=== PATIENT | male | born 1965 ===

== ENCOUNTER 2024-09-26 06:28 | Observation (INO) ==
--- NOTE | 2024-08-22 10:24 | PAT Medication Instructions ---
Medication Instructions Date of Service August 22, 2024 Home Medications amlodipine 10 mg tablet (Norvasc) 10 mg PO QAM aspirin 81 mg capsule 81 mg PO QAM carvedilol 6.25 mg tablet (Coreg) 6.25 mg PO BID citalopram 20 mg tablet (Celexa) 20 mg PO QAM ezetimibe 10 mg tablet (Zetia) 10 mg PO QAM losartan 100 mg-hydrochlorothiazide 25 mg tablet 1 tab PO QAM omeprazole 40 mg capsule,delayed release 40 mg PO QAM ASK your prescriber and surgeon aspirin 81 mg capsule 81 mg PO QAM DO NOT take the morning of surgery losartan 100 mg-hydrochlorothiazide 25 mg tablet 1 tab PO QAM Take morning of surgery With a small sip of water, OTHERWISE NOTHING TO EAT OR DRINK AFTER MIDNIGHT: amlodipine 10 mg tablet (Norvasc) 10 mg PO QAM carvedilol 6.25 mg tablet (Coreg) 6.25 mg PO BID citalopram 20 mg tablet (Celexa) 20 mg PO QAM ezetimibe 10 mg tablet (Zetia) 10 mg PO QAM omeprazole 40 mg capsule,delayed release 40 mg PO QAM Take evening before surgery carvedilol 6.25 mg tablet (Coreg) 6.25 mg PO BID Other Notes If you have any questions please call us at [phone] or [phone] or [phone] or [phone]
--- NOTE | 2024-08-25 15:44 | Anesthesiology Consultation ---
Date of Service August 25, 2024 Assessment & Plan (1) Encounter for pre-operative examination: Chart Review Chart Review: Acceptable Risk for Surgery and Patient seen in Pre Admission Testing Pt currently scheduled as 23 hours observation. If surgeon decides to change patient to Same Day Joint, patient would be acceptable risk for TKA, pending patient is motivated, has good support and surgeon's office completes [facility] Program preop requirements. Per PAT appt on 08/25/24, no recent illness/disease exposures, illness related symptoms, or recent illness/disease positive tests. Will leave to surgeon's discretion if preop Covid testing needed Seen by cardio 07/17/24= seen for follow up. HLD- no clinical ASCVD (normal coronaries 2014) and LDL 131 with mayalgias with statins. Continue Zetia. Encouraged diet and exercise. HTN- acceptable today. Continue meds. RBBB- no clinical significance- monitor. Follow up in one year Teaching & Discussion Pre-Anesthesia Teaching/Discussion Notes: Instructed NPO after midnight before surgery,except medications with 15 cc of water. Medication instructions provided according to the PAT guidelines. History Surgery Operation Date: 09/26/24 09:00 Proposed Procedures p Left Total Knee Arthroplasty - Dane Merchant, DO Height/Weight Height: 6 ft 2 in Weight: 155.6 kg Allergies Allergy/AdvReac Type Severity Reaction Status Date / Time latex Allergy Intermediate hives and Verified 08/21/24 16:04 itchy [id number]-[id number] Reductase Allergy Intermediate muscle Verified 08/21/24 16:04 Inhibitor aches Medications Home Medications Medication Instructions Recorded Confirmed Last Taken amlodipine 10 mg tablet (Norvasc) 10 mg PO QAM 08/21/24 08/21/24 Unknown aspirin 81 mg capsule 81 mg PO QAM 08/21/24 08/21/24 Unknown carvedilol 6.25 mg tablet (Coreg) 6.25 mg PO BID 08/21/24 08/21/24 Unknown citalopram 20 mg tablet (Celexa) 20 mg PO QAM 08/21/24 08/21/24 Unknown ezetimibe 10 mg tablet (Zetia) 10 mg PO QAM 08/21/24 08/21/24 Unknown losartan 100 1 tab PO QAM 08/21/24 08/21/24 Unknown mg-hydrochlorothiazide 25 mg tablet omeprazole 40 mg capsule,delayed 40 mg PO QAM 08/21/24 08/21/24 Unknown release Past Medical History Medical History Anxiety Barretts esophagus Follows routinely with GI GERD (gastroesophageal reflux disease) well controlled and stable Hyperlipidemia Hypertension Osteoarthritis Sleep apnea bipap Exercise / Class Metabolic Activity II 4-5 Yardwork/Stairs/Walk up hill (one flight of stairs - no chest pain or SOB ) Past Family History Family History Other No family history of adverse response to anesthesia Past Surgical History Surgical History History of cardiac cath 2014 "due to tightness" found to be a pinched nerve @ [facility] [place]--no stents--follows with Dr. Doyle Normal cath 2014 per cardio records History of colonoscopy History of esophageal dilatation History of esophagogastroduodenoscopy (EGD) History of surgical procedure on mouth upper right plate in place History of wisdom tooth extraction Past Anesthesia History No Hx of Anesthesia Complications and No Family Hx of Anesthesia Complications History of PONV No Hx of PONV and No Hx of Motion Sickness Social History Smoking Status: Former smoker Do You Dip or Chew Tobacco: No Smoking End Date: 1984 Hx Alcohol Use: Yes alcohol intake frequency: holidays/special occasions only Hx Substance Use: No substance use type: does not use Review of Systems Patient denies chest pain, shortness of breath, dyspnea on exertion, cough, wheezing, palpitations. No hx of seizures, stroke, NH. No hx of blood clots or blood transfusions Physical Exam Vital Signs VITALS BP 126/83 P 73 TEMP 98.4 SP02 97% RESP 16 Constitutional no acute distress ENMT Mouth: no TMJ clicking Thyromental Distance: > or= 3.5 Finger Breadths (4.0) Mallampati Class: III Missing side teeth and molars Right permanent bridge to right top side Neck neck extension not limited Respiratory normal respiratory effort; no respiratory distress Auscultation: lungs clear to auscultation bilaterally; no wheezes Cardiovascular Rate/Rhythm: regular rate and regular rhythm Heart Sounds: no murmur Vessels: no carotid bruit Musculoskeletal Spine: no pain with cervical ROM Extremities: extremities normal to inspection Psychiatric Orientation: alert Lab Results Anesthesia Preop Results Results Anesthesia Widget: WBC 6.88 K/ul (4.8-10.8) 08/25/24 Hgb 14.2 g/dl (14.0-18.0) 08/25/24 Hct 41.5 % (42.0-52.0) L 08/25/24 Plt 233 K/uL (130-400) 08/25/24 Na 138 mmol/L (136-145) 08/25/24 K 3.5 mmol/L (3.5-5.1) 08/25/24 Cl 104 mmol/L (98-107) 08/25/24 CO2 27 mmol/L (21-32) 08/25/24 BUN 12 mg/dl (6-23) 08/25/24 Creat 0.93 mg/dl (0.6-1.4) 08/25/24 Glucose Level 84 mg/dl (70-99(Fasting)) 08/25/24 PT 11.3 Seconds (9.0-12.0) 08/25/24 PTT 30 Seconds (21-31) 08/25/24 INR 1.0 (0.9-1.1) 08/25/24 Blood Type A Positive 08/25/24 Antibody Screen NEGATIVE 08/25/24 Testing Electrocardiogram Date: 08/25/24 Findings: + NSR @ (66bpm) Left axis deviation RBBB Chest X-Ray Date: 08/25/24 Findings: + NAD No active cardiopulmonary disease. Mild thoracic spondylosis. Echocardiogram Date: 07/18/23 EF: 50-55% Other Findings: + diastolic dysfunction (Grade I ); no LVH Moderately dilated LV Low normal systolic function Mild TR. Mild MO Mild left atrial enlargement
--- NOTE | 2024-09-24 07:56 | History & Physical Report ---
Date of Service September 24, 2024 Assessment & Plan (1) Osteoarthritis of left knee: We will proceed with a left total knee arthroplasty. Postoperatively, he will be started on aspirin for DVT prophylaxis and kept overnight in the hospital for postop medical management. He plans to have the hospital set up home health after discharge. History of Present Illness Chief Complaint: Osteoarthritis of the left knee. Primary Care Provider: RICARDO PCP Lauro is a pleasant 59-year-old male who has been dealing with chronic increasing left knee pain. X-rays and clinical exam have been diagnostic for advanced arthritis of the left knee. After failing years of conservative treatment including gel injections and steroids, he has elected to proceed with a left total knee arthroplasty. . Allergies Allergy/AdvReac Type Severity Reaction Status Date / Time latex Allergy Intermediate hives and Verified 08/21/24 16:04 itchy Svgmwyt-CKA-FoA Reductase Allergy Intermediate muscle Verified 08/21/24 16:04 Inhibitor aches Home Medications Medication Instructions Recorded Confirmed Type amlodipine 10 mg tablet (Norvasc) 10 mg PO QAM 08/21/24 08/21/24 History aspirin 81 mg capsule 81 mg PO QAM 08/21/24 08/21/24 History carvedilol 6.25 mg tablet (Coreg) 6.25 mg PO BID 08/21/24 08/21/24 History citalopram 20 mg tablet (Celexa) 20 mg PO QAM 08/21/24 08/21/24 History ezetimibe 10 mg tablet (Zetia) 10 mg PO QAM 08/21/24 08/21/24 History losartan 100 1 tab PO QAM 08/21/24 08/21/24 History mg-hydrochlorothiazide 25 mg tablet omeprazole 40 mg capsule,delayed 40 mg PO QAM 08/21/24 08/21/24 History release Past Med/Surg History Problem List Osteoarthritis of left knee Medical History Osteoarthritis GERD (gastroesophageal reflux disease) well controlled and stable Barretts esophagus Follows routinely with GI Anxiety Hypertension Hyperlipidemia Sleep apnea bipap Surgical History History of colonoscopy History of esophageal dilatation History of surgical procedure on mouth upper right plate in place History of wisdom tooth extraction History of cardiac cath 2015 "due to tightness" found to be a pinched nerve @ [facility] [place]--no stents--follows with Dr. Doyle Normal cath 2014 per cardio records History of esophagogastroduodenoscopy (EGD) Family History Other No family history of adverse response to anesthesia Social History Smoking Status: Former smoker Tobacco Type: Cigarettes Second Hand Exposure: No; Do You Dip or Chew Tobacco: No; Hx Alcohol Use: Yes Hx Substance Use: No Preferred Language: Urdu Communication Ability: Effective Rug Weaver Required: No Beliefs That Will Affect Care: None Current Living Situation: Spouse Feels Safe at Home: Yes Assistive Devices: BiPap Review of Systems All systems reviewed & are unremarkable except as noted in HPI & below. Physical Exam On physical exam of the left knee, he has a slight varus deformity. He has tenderness palpation of the distal medial femoral condyle and over the medial joint line.. Constitutional WD/WN, vitals as above Eyes PERRL, conjunctivae normal, anicteric sclerae ENMT external ear and nose normal, oropharynx normal Neck trachea midline, no thyromegaly Respiratory normal respiratory effort Cardiovascular RRR, no murmur, no edema Gastrointestinal (Abdomen) normal bowel sounds, soft, nontender, no hepatosplenomegaly Psychiatric A+Ox3, euthymic affect Results & Data Results & Data Laboratory Results . Diagnostic Findings X-rays of the left knee show advanced osteoarthritis with joint space narrowing, osteophyte formation, and cjxn-nm-[id number] articulation. PG Care Time/CCT Total # of Minutes Spent Total Time Spent with Patient: Total time spent is greater than 50% in coordination of care (as documented) at patient's floor/unit and/or counseling patient: Coding Level of Care Code None Diagnoses Osteoarthritis of left knee M17.12
[~2024-09-26 06:28] MED LIST: BUPIVACAINE 0.5 % 5 MG/1 ML PF 10ML VIAL ONE; ROPIVACAINE 0.5% 5 MG/ML 30 ML VIAL ONE
[2024-09-26] MEDS ORDERED: BUPIVACAINE 0.25% PF 30 ML VIAL ONE (06:32)
--- NOTE | 2024-09-26 06:43 | History & Physical Bridge Note ---
Date of Service September 26, 2024 History & Physical Bridge Note I have examined the patient, reviewed the History & Physical and in the interval since the performance of the History & Physical I have noted the following changes of clinical significance: no changes noted
[2024-09-26] MEDS ORDERED: MIDAZOLAM HCL 1 MG/ML 2ML VIAL ONE (07:05)
[2024-09-26] MEDS ORDERED: LIDOCAINE 2% 2 ML VIAL/AMP(20MG/ML) INFIL ONE ×2 (07:06)
[2024-09-26] MEDS ORDERED: PROPOFOL IV EMULSION 10 MG/ML 20 ML VIAL IV ONE (07:06)
[2024-09-26] MEDS: GABAPENTIN 600 MG DOSE PO SCH (07:10)
[2024-09-26] MEDS: LR 60ML/HR IV SCH (07:10)
[2024-09-26] MEDS: FAMOTIDINE 20 MG TAB PO SCH (07:10)
[2024-09-26] MEDS ORDERED: PHENYLEPHRINE HCL 10 MG/ML VIAL ONE ×2 (07:10)
[2024-09-26] MEDS: ACETAMINOPHEN 500 MG TAB PO SCH ×2 (07:10→14:23)
[2024-09-26] MEDS: dexAMETHasone**PF** 10 MG/ML VIAL IV SCH (07:11)
[2024-09-26] MEDS: LR 500ML BOLUS, THEN 15ML/HR IV SCH (07:11)
[2024-09-26] MEDS ORDERED: ONDANSETRON INJ 2 MG/ML 2 ML VIAL IV PRN ×2 (07:46→10:40)
[2024-09-26] MEDS ORDERED: ATROPINE SULFATE 0.1 MG/ML 10ML SYR IV PRN (07:46)
[2024-09-26] MEDS: TRANEXAMIC ACID 1,000 MG **IV Pre-op IV SCH (07:55)
[2024-09-26] MEDS: ceFAZolin 3000MG 3,000 MG/72.5 ML BAG IV SCH (07:59)
[2024-09-26] MEDS ORDERED: KETAMINE HCL 10MG/ML SYR ONE (08:07)
[2024-09-26] MEDS: ORTHO JOINT ANESTHETIC ONE (08:34)
[2024-09-26] MEDS ORDERED: PROPOFOL IV EMULSION 10 MG/ML 100 ML VIAL IV ONE (08:35)
[2024-09-26] MEDS: ROPIV 0.5% 246mg, Ketorolac 30mg, EPINEPHrine 0.5mg in NSS INFIL SCH (09:17)
--- NOTE | 2024-09-26 09:22 | Operative Report ---
PG Post Operative Report Pre & Post Diagnosis Operation Date: 09/26/24 08:00 Pre-Op Diagnosis: Osteoarthritis of left knee Post-Op Diagnosis: Osteoarthritis of left knee I identified the patient and participated in the time-out.: Yes Procedure Operation Date: 09/26/24 08:00 Actual Procedures p Left Total Knee Arthroplasty(Left) - Dane Merchant DO Surgeon Dane Merchant DO Tinter Photograph Daniel Pepe PA-C Estimated Blood Loss 30 Findings Consistent with Post-Op Diagnosis Specimens Left femoral and tibial bone Description of Procedure Implants used: I used a Darnell Persona total knee arthroplasty system with a size 12 standard PS femur, G tibia, 34 oval patella, and a size 10 CPS polyethylene bearing. All components were cemented in place with Biomet cement. Ralph arrived [facility] for the above procedure. He was seen in the preoperative holding area and the operative extremity was identified and signed. He was given a preoperative antibiotic, TXA, a spinal anesthetic and an adductor nerve block. He was taken back to the operating room and laid on the table in supine position. He was given basic sedation. The operative knee was then prepped and draped in sterile fashion. A timeout was done, and the patient and the operative extremity was properly identified. A midline incision was made directly over the patella. Dissection was taken down to the extensor mechanism. A medial parapatellar arthrotomy was used. The medial retinaculum was released and the fat pad was mostly excised. The knee was flexed and the ACL, PCL, and meniscus were removed. A drill was sent down the center of the femoral canal followed by an intramedullary anand. Off that anand a distal femoral cutting block was placed. 9 mm was resected off the distal femur at 5 of valgus. A posterior referencing AP sizing guide was then placed on the distal femur. The femur measured to be a size 12. 2 drill holes were placed in 3 of external rotation. A 4-in-1 cutting block was then impacted into place. Anterior, posterior, and chamfer cuts were then made. The proximal tibia was then exposed. An external tibial alignment guide was placed. A tibial cut guide was then anchored in place and the proximal tibia was then resected. The posterior aspect of the knee was then opened up and any additional meniscus fragments and osteophytes were removed. The tibia measured to be a size G. The tibial plate was then placed in the appropriate rotation and the tibia was drilled and punched. Trial components were then placed. I used a size 10 CPS polyethylene insert. The knee was brought through a full range of motion and felt to be stable. The peg holes for the femoral component were then drilled. The patella was then everted and 9 mm was resected off the posterior aspect of the patella. The patella measured to be a size 34 oval. 3 peg holes were then drilled. A trial patella was placed. The knee was once again brought through a full range of motion and felt to be stable. Trial components were then removed. The surrounding soft tissues were injected with 100 cc of an orthopedic pain control cocktail. All components were then cemented into place with Biomet cement. The final polyethylene insert was then snapped into place. Once cement was dry the tourniquet was deflated. Hemostasis was obtained. A dilute betadyne lavage was then done for 3 minutes. The joint was then irrigated with normal saline solution. The medial parapatellar arthrotomy was then closed with #1 Vicryl suture. The skin was closed with 2-0 Vicryl, 3-0V lock suture, and tess. A soft compressive dressing was placed. He was then transferred to a hospital bed and taken to the postanesthesia care unit in stable condition. He tolerated the procedure well. Daniel Pepe PA-C, was present for the entire procedure. He was critical for patient positioning, prepping, draping, retraction exposure, wound closure and application of sterile dressing. I attest to the content of the Intraoperative Record and any orders documented therein. Any exceptions are noted below.
--- NOTE | 2024-09-26 10:13 | XRay Report ---
TWO VIEWS LEFT KNEE CLINICAL HISTORY: Postoperative examination. FINDINGS: AP and crosstable lateral portable views of the left knee are obtained. A left knee arthrop lasty is in near anatomic alignment. There has been undersurface remodeling of the patella. No acute fracture is seen. Soft tissue edema and subcutaneous gas around the knee are expected postsurgical fi ndings. IMPRESSION: Expected postoperative changes status post left knee arthroplasty. No acute fracture is s een. ACT 112: Negative or not required by law. Electronically signed by: Tye Hale M.D. 09/26/2024 10:11 AM
[2024-09-26] MEDS ORDERED: NALOXONE HCL 0.4 MG/1 ML VIAL/CARP IV PRN (10:40)
[2024-09-26] MEDS ORDERED: HYDROmorphone INJ 0.5 MG/0.5 ML SYR IV PRN (10:40)
[2024-09-26] MEDS ORDERED: MAGNESIUM HYDROXIDE SUSP 30 ML UDC PO PRN (10:40)
[2024-09-26] MEDS ORDERED: METOCLOPRAMIDE HCL INJ 5 MG/ML 2 ML VIAL IV PRN (10:40)
[2024-09-26] MEDS: SODIUM CHLORIDE 0.9% 1,000 ML IV SCH (11:04)
[2024-09-26] MEDS: KETOROLAC TROMETHAMINE 15 MG/ML VIAL IV SCH (11:07)
--- NOTE | 2024-09-26 11:43 | Anesthesiology Progress Note ---
Date of Service September 26, 2024 Anesthesia Post Procedure Vital Signs Vital Signs: Temp Pulse Pulse Resp BP BP Pulse Ox 09/26/24 11:17 36.4 C L 57 L 16 145/87 H 98 09/26/24 10:44 36.4 C L 53 L 16 146/80 H 97 09/26/24 10:26 36.1 C L 09/26/24 10:15 52 L 17 153/87 H 96 09/26/24 10:05 53 L 14 155/89 H 96 09/26/24 09:55 51 L 17 129/84 98 09/26/24 09:49 36.0 C L 53 L 17 136/71 96 09/26/24 07:08 09/26/24 06:50 37 C 68 20 122/83 96 O2 Del Method O2 Flow Rate 09/26/24 11:17 Room Air 09/26/24 10:44 Room Air 09/26/24 10:26 09/26/24 10:15 Room Air 09/26/24 10:05 Room Air 09/26/24 09:55 Oxymask 5 09/26/24 09:49 Oxymask 5 09/26/24 07:08 Room Air 09/26/24 06:50 Room Air Transfer of Care Handoff Completed per policy Notes Mental Status: alert / awake / arousable Patient Amnestic to Procedure: Yes Nausea / Vomiting: adequately controlled Pain: adequately controlled Airway Patency, RR, SpO2: stable & adequate BP & HR: stable & adequate Hydration State: stable & adequate Neuraxial Anesthesia: was administered and sensory block is resolving Anesthetic Complications: no major complications apparent and Pt Satisfied with anesthetic care
[2024-09-26] MEDS: SENNA 8.6 MG TAB PO SCH (20:01)
[2024-09-26] MEDS: DOCUSATE SODIUM 100 MG CAP PO SCH (20:01)
[2024-09-26] MEDS: ASPIRIN 81 MG ECTAB PO SCH (20:01)
[2024-09-26 23:28] VITALS: O2SAT 98
[2024-09-27 07:03] LABS: Hematocrit (blood only) 35.6 % (42.0-52.0); Hemoglobin 12.5 g/dl (14.0-18.0); Immature Granulocytes # (auto) 0.08 K/uL (0.01-0.20); Immature Granulocytes % (auto) 0.6 %; Mean Corpuscular Hemoglobin 28.7 pg (25.0-34.0); Mean Corpuscular Volume 81.8 fL (80.0-100.0); Platelet Count 207 K/uL (130-400); RDW Standard Deviation 38.7 fL (36.4-46.3); Red Blood Count 4.35 M/uL (4.70-6.10); White Blood Count 14.54 K/ul (4.8-10.8)
[2024-09-27 07:21] LABS: Anion Gap 6.0 (3-11); Blood Urea Nitrogen 21.0 mg/dl (6-23); Calcium 8.6 mg/dl (8.6-10.3); Carbon Dioxide 26.0 mmol/L (21-32); Chloride 105.0 mmol/L (98-107); Creatinine Clr Calc Pharmacy 124.0 ml/min; Glucose 117.0 mg/dl (70-99(Fasting)); Potassium 4.0 mmol/L (3.5-5.1); Sodium 137.0 mmol/L (136-145)
[2024-09-27] MEDS: CITALOPRAM 20 MG TAB PO SCH (07:27)
[2024-09-27] MEDS: LOSARTAN/HCTZ 50/12.5MG TAB PO SCH (07:27)
[2024-09-27] MEDS: EZETIMIBE 10 MG TAB PO SCH (07:27)
[2024-09-27] MEDS: MULTIVITAMIN TAB PO SCH (07:28)
--- NOTE | 2024-09-27 07:44 | Orthopedic Progress Note ---
Date of Service September 27, 2024 Assessment & Plan (1) Status post left knee replacement: Overall he is doing fairly well. He is not having too much pain in the left knee. He has been up and ambulating to the bathroom. He will be seen by physical therapy today for ambulation and range of motion exercises. The nursing staff can remove the Luigi wrap and cotton dressing today. Leave the Silverlon in place. They may replace the Silverlon if it saturated. He is on aspirin for DVT prophylaxis. He can be discharged home later today. He will follow-up with orthopedics in 2 weeks. Joe Rosas was seen and examined at bedside this morning. Overall is doing very well. He is not having much pain in the left knee. He has been up and ambulating to the bathroom. He has no complaints.. Review of Systems All systems reviewed & are unremarkable except as noted in HPI & below. Physical Exam On physical exam of the left knee, the dressing is clean and dry. His leg is out full extension. He has active dorsiflexion and plantarflexion of his left ankle.. Results & Data Results & Data Laboratory Results . Diagnostic Findings Postoperative x-rays of the left knee show the prosthesis to be in anatomic alignment without any evidence of fracture complication, or loosening.. PG Care Time/CCT Total # of Minutes Spent Total Time Spent with Patient: Total time spent is greater than 50% in coordination of care (as documented) at patient's floor/unit and/or counseling patient: Coding Level of Care Code 33710 Post Operative Follow-Up Diagnoses Status post left knee replacement Z96.652
[2024-09-27 07:55] VITALS: RESP 16; TEMP 98.6
[2024-09-27 13:30] VITALS: BP 122/83; PULSE 66
== END 2024-09-27 13:47 | disposition home or self-care (01) ==
LOC: 3E 06:28 → ASU 06:28